=== PATIENT | female | born 1940 | race Caucasian/White ===

== ENCOUNTER 2016-10-18 10:07 | Inpatient (IN) | payer MEDICARE ==
[~2016-10-18] VITALS: Ht 157.5 cm; Wt 111.1 kg
[2016-10-18 10:13] VITALS: BP 150/88
[2016-10-18] MEDS ORDERED: DILTIAZEM ER120 MG PO (10:29)
[2016-10-18] MEDS ORDERED: METFORMIN500 MG PO (10:29)
[2016-10-18] MEDS ORDERED: DOXAZOSIN2 MG PO (10:30)
[2016-10-18] MEDS ORDERED: LISINOPRIL20 MG PO (10:30)
[2016-10-18] MEDS ORDERED: REQUIP5 MG PO (10:30)
[2016-10-18] MEDS ORDERED: SIMVASTATIN80 MG PO (10:31)
[2016-10-18] MEDS ORDERED: LASIX20 MG PO (10:31)
[2016-10-18] MEDS ORDERED: NORCO 5-325 TA1 EACH PO (10:31)
[2016-10-18] MEDS ORDERED: B COMPLEX1 EACH PO (10:32)
[2016-10-18] MEDS ORDERED: VITRON-C 125 MG1 TAB PO (10:32)
[2016-10-18 10:36] VITALS: BP 206/75
[2016-10-18 10:50] LABS: BASO % 0.5 % (0.0-1.0); EOS # 0.2 10*3/uL (0.0-0.4); EOS % 3.4 % (1.0-4.0); HEMATOCRIT 34.5 % (37.0-47.0); HEMOGLOBIN 10.5 g/dl (12.0-16.0); LYMPH # 0.9 10*3/uL (1.3-4.4); LYMPH % 15.6 % (27.0-41.0); MEAN CELL VOLUME 96.1 fl (81.0-99.0); MEAN CORPUSCULAR HGB 29.2 pg (27.0-31.0); MEAN CORPUSCULAR HGB CONC 30.4 g/dl (33.0-37.0); MEAN PLATELET VOLUME 10.8 fl (9.6-12.3); MONO # 0.7 10*3/uL (0.1-1.0); MONO % 10.9 % (3.0-9.0); NEUT # 4.1 10*3/uL (2.3-7.9); NEUT % 69.3 % (47.0-73.0); PLATELET COUNT AUTOMATED 163 10*3/uL (130-400); RED BLOOD COUNT 3.59 10*6/uL (4.10-5.10); RED CELL DISTRI WIDTH 14.7 % (0-14.5)
[2016-10-18 10:59] LABS: INTERNATIONAL NORM RATIO 1.1 (2.0-3.5)
[2016-10-18 11:08] LABS: ALBUMIN 3.4 gm/dl (3.1-4.5); ALKALINE PHOSPHATASE 82 U/L (45-117); BILIRUBIN, TOTAL 0.6 mg/dl (0.2-1.0); BUN 14 mg/dl (7-24); CARBON DIOXIDE 24 mmol/L (21-32); CHLORIDE 109 mmol/L (98-107); EST GLOM FILT AFRICAN AMERICAN > 60 ml/min; GLUCOSE 103 mg/dL (65-99); MAGNESIUM 1.9 mg/dL (1.5-2.1); POTASSIUM 3.7 mmol/L (3.5-5.1); SGOT/AST 14 IU/L (3-35); SGPT/ALT 20 U/L (12-78); SODIUM 145 mmol/L (136-145); TOTAL PROTEIN 6.7 gm/dL (6.4-8.2); TROPONIN I 0.015 ng/ml (<0.5)
[2016-10-18 11:09] VITALS: BP 188/64
[2016-10-18 11:15] VITALS: BP 169/49
[2016-10-18 11:46] VITALS: BP 158/49
[2016-10-18 11:50] LABS: BILIRUBIN 1+ (NEGATIVE); BLOOD NEGATIVE (NEGATIVE); CLARITY SL CLOUDY (CLEAR); COLOR YELLOW (YELLOW); GLUCOSE NEGATIVE (NEGATIVE); KETONE 1+ (NEGATIVE); LEUKO ESTERASE NEGATIVE (NEGATIVE); NITRITE NEGATIVE (NEGATIVE); PH 5.5 (5.0-9.0); PROTEIN 2+ (NEGATIVE); SPECIFIC GRAVITY 1.025 (1.005-1.030); UROBILINOGEN 0.2 E.U./dl (0.2-1.0)
[2016-10-18 12:02] LABS: MUCOUS 2+; URINE REFLEX COMMENT NO (NO); WBC 0-2 wbc/hpf (0-5)
[2016-10-18 12:30] VITALS: BP 175/55
[2016-10-18 18:24] LABS: CKMB 2.8 ng/ml (0.5-3.6); TROPONIN I 0.037 ng/ml (<0.5)
[2016-10-19] VITALS: BP 173/72
[2016-10-19 00:50] LABS: CKMB 3.5 ng/ml (0.5-3.6); TROPONIN I 0.024 ng/ml (<0.5)
[2016-10-19 04:00] VITALS: BP 169/61
[2016-10-19 06:02] LABS: BASO % 0.2 % (0.0-1.0); HEMATOCRIT 33.3 % (37.0-47.0); HEMOGLOBIN 10.5 g/dl (12.0-16.0); LYMPH # 0.3 10*3/uL (1.3-4.4); LYMPH % 7.5 % (27.0-41.0); MEAN CORPUSCULAR HGB 29.2 pg (27.0-31.0); MEAN CORPUSCULAR HGB CONC 31.5 g/dl (33.0-37.0); MEAN PLATELET VOLUME 10.5 fl (9.6-12.3); MONO # 0.1 10*3/uL (0.1-1.0); NEUT % 89.4 % (47.0-73.0); PLATELET COUNT AUTOMATED 162 10*3/uL (130-400); RED BLOOD COUNT 3.59 10*6/uL (4.10-5.10); RED CELL DISTRI WIDTH 14.7 % (0-14.5); WHITE BLOOD COUNT 4.4 10*3/uL (4.8-10.8)
[2016-10-19 06:08] LABS: MEAN CELL VOLUME 92.8 fl (81.0-99.0)
[2016-10-19 06:13] LABS: CKMB 2.9 ng/ml (0.5-3.6); TROPONIN I 0.027 ng/ml (<0.5)
[2016-10-19 06:15] LABS: HEMOGLOBIN A1c 5.4 % (4.8-5.6)
[2016-10-19 06:35] VITALS: BP 204/69
[2016-10-19 06:40] LABS: INTERNATIONAL NORM RATIO 1.1 (2.0-3.5); PROTHROMBIN TIME 11.9 SECONDS (9.0-12.4)
[2016-10-19 06:43] LABS: ALBUMIN 3.2 gm/dl (3.1-4.5); ALKALINE PHOSPHATASE 74 U/L (45-117); BILIRUBIN, TOTAL 0.6 mg/dl (0.2-1.0); BUN 16 mg/dl (7-24); CARBON DIOXIDE 25 mmol/L (21-32); CHLORIDE 106 mmol/L (98-107); CHOLESTEROL 108 mg/dL (<200); EST GLOM FILT AFRICAN AMERICAN > 60 ml/min; GLUCOSE 154 mg/dL (65-99); HDL CHOLESTEROL 80 mg/dl (40-60); LDL CHOLESTEROL 18 mg/dL (9-159); MAGNESIUM 1.7 mg/dL (1.5-2.1); POTASSIUM 3.9 mmol/L (3.5-5.1); SGOT/AST 19 IU/L (3-35); SGPT/ALT 19 U/L (12-78); SODIUM 142 mmol/L (136-145); THYROID STIM HORMONE (HS) 0.258 uIU/ml (0.358-4.75); TOTAL PROTEIN 6.3 gm/dL (6.4-8.2); TRIGLYCERIDES 52 mg/dl (<150); VLDL CHOLESTEROL 10 mg/dL (6-40)
[2016-10-19 07:16] LABS: FOLIC ACID 12.88 ng/mL (>5.38)
[2016-10-19 07:17] LABS: VITAMIN D, 25-HYDROXY 9.4 ng/mL (30-100)
[2016-10-19 12:00] VITALS: BP 132/48
[2016-10-19 16:00] VITALS: BP 130/50
[2016-10-19 20:00] VITALS: BP 153/67
[2016-10-20] VITALS: BP 174/75
[2016-10-20 04:00] VITALS: BP 158/64
[2016-10-20 06:22] LABS: HEMATOCRIT 33.3 % (37.0-47.0); HEMOGLOBIN 10.4 g/dl (12.0-16.0); MEAN CORPUSCULAR HGB 29.1 pg (27.0-31.0); MEAN CORPUSCULAR HGB CONC 31.2 g/dl (33.0-37.0); MEAN PLATELET VOLUME 11.2 fl (9.6-12.3); PLATELET COUNT AUTOMATED 171 10*3/uL (130-400); RED BLOOD COUNT 3.58 10*6/uL (4.10-5.10); RED CELL DISTRI WIDTH 15.1 % (0-14.5); WHITE BLOOD COUNT 8.1 10*3/uL (4.8-10.8)
[2016-10-20 06:48] LABS: POTASSIUM 3.4 mmol/L (3.5-5.1)
[2016-10-20 07:13] LABS: ACANTHOCYTES FEW; BURR CELLS FEW; LYMPHOCYTE # 0.1 10*3/uL (1.3-4.4); MONOCYTE # 0.2 10*3/uL (0.1-1.0); NEUTROPHIL # 7.8 10*3/uL (2.3-7.9); NEUTROPHILS 96 % (47-73); PLATELET SUFFICIENCY NORMAL (NORMAL); POLYCHROMASIA SLIGHT; SCHISTOCYTES FEW; TOTAL CELLS COUNTED 100 #CELLS
[2016-10-20 08:00] VITALS: BP 140/50
[2016-10-20 12:00] VITALS: BP 146/83
[2016-10-20 16:00] VITALS: BP 130/42
[2016-10-20 20:00] VITALS: BP 129/48
[2016-10-21] VITALS: BP 139/73
[2016-10-21 08:00] VITALS: BP 126/66
[2016-10-21 08:53] LABS: HEMATOCRIT 33.3 % (37.0-47.0); HEMOGLOBIN 10.1 g/dl (12.0-16.0); MEAN CELL VOLUME 94.9 fl (81.0-99.0); MEAN CORPUSCULAR HGB 28.8 pg (27.0-31.0); MEAN CORPUSCULAR HGB CONC 30.3 g/dl (33.0-37.0); MEAN PLATELET VOLUME 11.3 fl (9.6-12.3); PLATELET COUNT AUTOMATED 164 10*3/uL (130-400); RED BLOOD COUNT 3.51 10*6/uL (4.10-5.10); WHITE BLOOD COUNT 6.9 10*3/uL (4.8-10.8)
[2016-10-21 09:16] LABS: ACANTHOCYTES FEW; LYMPHOCYTE # 0.4 10*3/uL (1.3-4.4); NEUTROPHIL # 6.5 10*3/uL (2.3-7.9); NEUTROPHILS 94 % (47-73); PLATELET SUFFICIENCY NORMAL (NORMAL); SCHISTOCYTES FEW; TOTAL CELLS COUNTED 100 #CELLS
[2016-10-21 09:20] LABS: POTASSIUM 3.8 mmol/L (3.5-5.1)
[2016-10-21 12:00] VITALS: BP 113/64
[2016-10-21 16:00] VITALS: BP 142/54
[2016-10-21 20:00] VITALS: BP 118/69
[2016-10-22] VITALS: BP 135/55
[2016-10-22 07:13] LABS: HEMATOCRIT 34.4 % (37.0-47.0); HEMOGLOBIN 10.4 g/dl (12.0-16.0); LYMPH # 0.4 10*3/uL (1.3-4.4); LYMPH % 6.1 % (27.0-41.0); MEAN CELL VOLUME 94.2 fl (81.0-99.0); MEAN CORPUSCULAR HGB 28.5 pg (27.0-31.0); MEAN CORPUSCULAR HGB CONC 30.2 g/dl (33.0-37.0); MEAN PLATELET VOLUME 11.4 fl (9.6-12.3); MONO # 0.3 10*3/uL (0.1-1.0); MONO % 5.4 % (3.0-9.0); NEUT # 5.4 10*3/uL (2.3-7.9); NEUT % 87.8 % (47.0-73.0); PLATELET COUNT AUTOMATED 154 10*3/uL (130-400); RED BLOOD COUNT 3.65 10*6/uL (4.10-5.10); RED CELL DISTRI WIDTH 14.6 % (0-14.5); WHITE BLOOD COUNT 6.1 10*3/uL (4.8-10.8)
[2016-10-22 07:40] LABS: POTASSIUM 3.9 mmol/L (3.5-5.1)
[2016-10-22 08:00] VITALS: BP 158/74
[2016-10-22 12:00] VITALS: BP 149/71
[2016-10-22] MEDS ORDERED: NEURONTIN300 MG PO (13:40)
[2016-10-22 16:00] VITALS: BP 134/56
[2016-10-22] MEDS ORDERED: ACETAMINOPHEN-H1 TA2 PO (17:29)
[2016-10-22] MEDS ORDERED: CLEOCIN HCL300 MG PO (17:29)
[2016-10-22] MEDS ORDERED: CYCLOBENZAPRINE10 MG PO (17:29)
[2016-10-22] MEDS ORDERED: PREDNISONE10 MG PO (17:29)
[2016-10-22] MEDS ORDERED: Zestril,Prinivi40 MG PO (17:29)
[2016-10-22 20:00] VITALS: BP 130/50
[2016-10-23] VITALS: BP 146/70
[2016-10-23 08:00] VITALS: BP 138/50
[2016-12-03] MEDS ORDERED: METFORMIN500 MG PO (13:47)
[2016-12-03] MEDS ORDERED: LISINOPRIL5 MG PO (13:49)
[2016-12-03] MEDS ORDERED: ZANTAC 300300 MG PO (13:50)
== END 2016-10-23 11:14 | disposition other institution (70) | DRG 871 ==
LOC: ED 10:07 → EDHOLD 11:02 → ICCU 11:02 → 5E 10-20 17:09
PROVIDERS: Family Medicine; Internal Medicine; Student in an Organized Health Care Education/Training Program
DX: A41.9 Sepsis, unspecified organism (principal); I50.31 Acute diastolic (congestive) heart failure; J96.01 Acute respiratory failure with hypoxia; N17.0 Acute kidney failure with tubular necrosis; L03.119 Cellulitis of unspecified part of limb; I16.1 Hypertensive emergency; I74.8 Embolism and thrombosis of other arteries; R65.20 Severe sepsis without septic shock; D64.9 Anemia, unspecified; E11.65 Type 2 diabetes mellitus with hyperglycemia; I11.0 Hypertensive heart disease with heart failure; E78.5 Hyperlipidemia, unspecified; M79.605 Pain in left leg; I70.201 Unspecified atherosclerosis of native arteries of extremities, right leg; I87.2 Venous insufficiency (chronic) (peripheral); Z96.651 Presence of right artificial knee joint; Z90.710 Acquired absence of both cervix and uterus; Z79.4 Long term (current) use of insulin; Z79.899 Other long term (current) drug therapy

== ENCOUNTER 2017-03-24 23:17 | Emergency (ER) | payer MEDICARE ==
[~2017-03-24] VITALS: Ht 162.5 cm; Wt 97.1 kg
[~2017-03-24 23:17] MED LIST: ACETAMINOPHEN-H1 TA2 PO; B COMPLEX1 EACH PO; CLEOCIN HCL300 MG PO; CYCLOBENZAPRINE10 MG PO; DILTIAZEM ER120 MG PO; DOXAZOSIN2 MG PO; LASIX20 MG PO; LISINOPRIL20 MG PO; LISINOPRIL5 MG PO; METFORMIN500 MG PO; NEURONTIN300 MG PO; NORCO 5-325 TA1 EACH PO; PREDNISONE10 MG PO; REQUIP5 MG PO; SIMVASTATIN80 MG PO; VITRON-C 125 MG1 TAB PO; ZANTAC 300300 MG PO; Zestril,Prinivi40 MG PO
[2017-03-24] MEDS ORDERED: IMDUR SA30 MG PO (23:29)
[2017-03-24] MEDS ORDERED: IRON325 M1 PO (23:30)
[2017-03-24] MEDS ORDERED: ASPIRIN FOR CHI81 MG PO (23:30)
== END 2017-03-25 02:26 | disposition home or self-care (01) ==
LOC: ED 23:17
DX: S00.03XA Contusion of scalp, initial encounter (principal); E78.5 Hyperlipidemia, unspecified; E11.9 Type 2 diabetes mellitus without complications; F17.200 Nicotine dependence, unspecified, uncomplicated; I11.0 Hypertensive heart disease with heart failure; I50.9 Heart failure, unspecified; Z79.82 Long term (current) use of aspirin; Z79.899 Other long term (current) drug therapy; W18.30XA Fall on same level, unspecified, initial encounter; Y93.89 Activity, other specified; Y92.9 Unspecified place or not applicable; Y99.9 Unspecified external cause status

== ENCOUNTER → 2017-07-14 | Outpatient (CLI) | payer MEDICARE ==
[~2017-07-14] MED LIST changes: +ASPIRIN FOR CHI81 MG PO; +IMDUR SA30 MG PO; +IRON325 M1 PO
[2017-07-14 10:58] LABS: BASO % 0.4 % (0.0-1.0); EOS # 0.3 10*3/uL (0.0-0.4); EOS % 5.8 % (1.0-4.0); HEMOGLOBIN 11.7 g/dl (12.0-16.0); LYMPH # 1.3 10*3/uL (1.3-4.4); LYMPH % 26.1 % (27.0-41.0); MEAN CORPUSCULAR HGB 29.4 pg (27.0-31.0); MEAN CORPUSCULAR HGB CONC 31.6 g/dl (33.0-37.0); MEAN PLATELET VOLUME 11.8 fl (9.6-12.3); MONO # 0.7 10*3/uL (0.1-1.0); MONO % 14.5 % (3.0-9.0); NEUT # 2.7 10*3/uL (2.3-7.9); PLATELET COUNT AUTOMATED 163 10*3/uL (130-400); RED BLOOD COUNT 3.98 10*6/uL (4.10-5.10); RED CELL DISTRI WIDTH 14.4 % (0-14.5)
[2017-07-14 11:32] LABS: ALBUMIN 3.6 gm/dl (3.1-4.5); ALKALINE PHOSPHATASE 82 U/L (45-117); BUN 17 mg/dl (7-24); CHLORIDE 106 mmol/L (98-107); CHOLESTEROL 133 mg/dL (<200); CREATININE 0.91 mg/dL (0.55-1.02); FREE T4 1.14 ng/dl (0.76-1.46); HDL CHOLESTEROL 68 mg/dl (40-60); IRON 60 ug/dL (50-170); LDL CHOLESTEROL 49 mg/dL (9-159); SGOT/AST 27 IU/L (3-35); SGPT/ALT 26 U/L (12-78); SODIUM 144 mmol/L (136-145); TOTAL IRON BINDING CAPACITY 342 ug/dl (250-450); TOTAL PROTEIN 6.8 gm/dL (6.4-8.2); VLDL CHOLESTEROL 16 mg/dL (6-40)
[2017-07-14 11:38] LABS: THYROID STIM HORMONE (HS) 0.363 uIU/ml (0.358-4.75)
== END | disposition home or self-care (01) ==
LOC: LAB 10:26
PROVIDERS: Internal Medicine Endocrinology, Diabetes & Metabolism
DX: E11.9 Type 2 diabetes mellitus without complications (principal); E04.2 Nontoxic multinodular goiter; E78.2 Mixed hyperlipidemia; E53.1 Pyridoxine deficiency; D50.9 Iron deficiency anemia, unspecified

== ENCOUNTER → 2018-01-10 | Outpatient (CLI) | payer MEDICARE ==
[2018-01-10 08:54] LABS: BASO % 0.5 % (0.0-1.0); EOS # 0.3 10*3/uL (0.0-0.4); EOS % 5.1 % (1.0-4.0); HEMATOCRIT 37.4 % (37.0-47.0); HEMOGLOBIN 11.3 g/dl (12.0-16.0); LYMPH # 1.2 10*3/uL (1.3-4.4); MEAN CELL VOLUME 97.4 fl (81.0-99.0); MEAN CORPUSCULAR HGB 29.4 pg (27.0-31.0); MEAN CORPUSCULAR HGB CONC 30.2 g/dl (33.0-37.0); MEAN PLATELET VOLUME 11.7 fl (9.6-12.3); MONO # 0.7 10*3/uL (0.1-1.0); MONO % 11.5 % (3.0-9.0); NEUT # 3.5 10*3/uL (2.3-7.9); NEUT % 61.7 % (47.0-73.0); PLATELET COUNT AUTOMATED 172 10*3/uL (130-400); RED BLOOD COUNT 3.84 10*6/uL (4.10-5.10); RED CELL DISTRI WIDTH 13.8 % (0-14.5); WHITE BLOOD COUNT 5.7 10*3/uL (4.8-10.8)
[2018-01-10 09:27] LABS: ALBUMIN 3.6 gm/dl (3.1-4.5); BUN 23 mg/dl (7-24); CHLORIDE 108 mmol/L (98-107); CHOLESTEROL 103 mg/dL (<200); IRON 46 ug/dL (50-170); POTASSIUM 4.2 mmol/L (3.5-5.1); SODIUM 145 mmol/L (136-145); VLDL CHOLESTEROL 10 mg/dL (6-40)
[2018-01-10 09:34] LABS: ALKALINE PHOSPHATASE 105 U/L (45-117); FREE T4 1.22 ng/dl (0.76-1.46); HDL CHOLESTEROL 58 mg/dl (40-60); LDL CHOLESTEROL 35 mg/dL (9-159); SGOT/AST 21 IU/L (3-35); THYROID STIM HORMONE (HS) 0.477 uIU/ml (0.358-4.75); TOTAL IRON BINDING CAPACITY 363 ug/dl (250-450); TOTAL PROTEIN 6.7 gm/dL (6.4-8.2)
[2018-01-10 09:54] LABS: CREATININE 1.07 mg/dL (0.55-1.02); SGPT/ALT 24 U/L (12-78)
== END | disposition home or self-care (01) ==
LOC: LAB 08:25
PROVIDERS: Physician Assistant
DX: I50.31 Acute diastolic (congestive) heart failure (principal); E11.9 Type 2 diabetes mellitus without complications; E04.2 Nontoxic multinodular goiter; E78.2 Mixed hyperlipidemia; D50.9 Iron deficiency anemia, unspecified; D53.1 Other megaloblastic anemias, not elsewhere classified

== ENCOUNTER → 2018-07-13 | Outpatient (CLI) | payer MEDICARE ==
[2018-07-13 09:06] LABS: BASO % 0.7 % (0.0-1.0); EOS # 0.2 10*3/uL (0.0-0.4); HEMATOCRIT 35.3 % (37.0-47.0); HEMOGLOBIN 11.1 g/dl (12.0-16.0); LYMPH # 0.9 10*3/uL (1.3-4.4); LYMPH % 15.3 % (27.0-41.0); MEAN CORPUSCULAR HGB 30.5 pg (27.0-31.0); MEAN CORPUSCULAR HGB CONC 31.4 g/dl (33.0-37.0); MEAN PLATELET VOLUME 12.4 fl (9.6-12.3); MONO # 0.7 10*3/uL (0.1-1.0); MONO % 11.9 % (3.0-9.0); NEUT % 67.9 % (47.0-73.0); PLATELET COUNT AUTOMATED 156 10*3/uL (130-400); RED BLOOD COUNT 3.64 10*6/uL (4.10-5.10); RED CELL DISTRI WIDTH 13.8 % (0-14.5); WHITE BLOOD COUNT 5.8 10*3/uL (4.8-10.8)
[2018-07-13 09:33] LABS: ALBUMIN 3.5 gm/dl (3.1-4.5); CREATININE 1.14 mg/dL (0.55-1.02); POTASSIUM 3.8 mmol/L (3.5-5.1)
[2018-07-13 09:41] LABS: FREE T4 1.29 ng/dl (0.76-1.46); THYROID STIM HORMONE (HS) 0.512 uIU/ml (0.358-4.75); TOTAL PROTEIN 6.6 gm/dL (6.4-8.2)
== END | disposition home or self-care (01) ==
LOC: LAB 08:23
PROVIDERS: Internal Medicine Endocrinology, Diabetes & Metabolism
DX: D50.9 Iron deficiency anemia, unspecified (principal); D53.1 Other megaloblastic anemias, not elsewhere classified; E11.9 Type 2 diabetes mellitus without complications; E04.2 Nontoxic multinodular goiter; E78.2 Mixed hyperlipidemia